=== PATIENT | female | born 1950 | race African-American/Black ===

== ENCOUNTER 2019-07-19 06:24 | Inpatient (IN) ==
[2019-07-18 15:36] LABS: Basophils % 0.2 % (0.0-0.8); Eosinophils % 0.2 % (0.00-10.9); Hematocrit 24.6 VOL% (35.7-47.0); Hemoglobin 7.8 GM/DL (12.0-16.0); Immature Granulocytes Absolute 0.32 #; Lymphocytes # 1.2 10*3/uL (1.4-4.0); Lymphocytes % 7.6 % (21.3-54.2); Mean Corpuscular HGB Conc 31.7 GM/DL (32-36); Mean Corpuscular Volume 94.6 FL (87-102); Mean Platelet Volume 10.1 FL (9.6-12.0); Platelet Count 354 T/CUMM (130-400); Red Cell Distribution Width 13.6 % (9.3-17.3); White Blood Count 15.8 T/CUMM (4-12)
[2019-07-18 15:52] LABS: Albumin 2.4 G/DL (3.4-5.0); Bilirubin,Total 0.4 MG/DL (0.2-1.0); Calcium 9.7 MG/DL (8.5-10.1); Osmolality,Calculated 274.8 MOS/KG (273-304); Total Protein 8.6 G/DL (6.4-8.3)
[2019-07-19] MEDS ORDERED: VANCOMYCIN INJ 500 MG in SODIUM CHLORIDE 0.9% 100 ML IV ONE (06:30)
[2019-07-19] MEDS ORDERED: INSULIN REGULAR 100 UNIT/ML IV ONE (07:38)
[2019-07-19] MEDS ORDERED: BUPIVACAINE MPF 0.25% 30 ML VIAL ONE (07:43)
[2019-07-19] MEDS ORDERED: HEPARIN 5,000 UNIT/1 ML VIAL ONE (07:43)
[2019-07-19] MEDS ORDERED: LIDOCAINE 1% 20 ML VIAL ONE (07:43)
[2019-07-19] MEDS ORDERED: LACTATED RINGERS 1,000 ML IV SCH (08:00)
[2019-07-19] MEDS ORDERED: INSULIN REGULAR 100 UNIT/ML ONE (08:01)
[2019-07-19] MEDS ORDERED: VANCOMYCIN 500 MG VIAL ONE (08:01)
[2019-07-19] MEDS ORDERED: SODIUM CHLORIDE 0.9% 1,000 ML IV PRN (08:51)
[2019-07-19] MEDS ORDERED: ONDANSETRON 4 MG/2 ML VIAL IV PRN (11:52)
[2019-07-19] MEDS ORDERED: HYDROmorphone 2 MG/1 ML VIAL IV PRN (11:52)
[2019-07-19] MEDS ORDERED: lisinopriL 2.5 MG TABLET PO PRN (11:55)
[2019-07-19] MEDS ORDERED: propofoL 200 MG/20 ML VIAL IV ONE (12:10)
[2019-07-19] MEDS ORDERED: HEPARIN 10,000 UNIT/10 ML VIAL ONE (12:10)
[2019-07-19] MEDS ORDERED: LIDOCAINE 2% 5 ML VIAL ONE (12:10)
[2019-07-19] MEDS ORDERED: SEVOFLURANE 1 UNIT/15 MINUTE INH ONE (12:10)
[2019-07-19] MEDS ORDERED: SODIUM CHLORIDE 0.9% 250 ML IV ONE (12:11)
[2019-07-19] MEDS ORDERED: ROCURONIUM 100 MG/10 ML VIAL IV ONE (12:11)
[2019-07-19] MEDS ORDERED: fentaNYL 100 MCG/2 ML VIAL ONE (12:11)
[2019-07-19] MEDS ORDERED: PHENYLEPHRINE 1 MG/10 ML SYRINGE IV ONE (12:11)
[2019-07-19] MEDS ORDERED: MIDAZOLAM 2 MG/2 ML VIAL ONE (12:11)
[2019-07-19] MEDS ORDERED: SUCCINYLCHOLINE 200 MG/10 ML VIAL ONE (12:11)
[2019-07-19 13:38] LABS: Hematocrit 32.8 VOL% (35.7-47.0); Hemoglobin 10.2 GM/DL (12.0-16.0)
[2019-07-19] MEDS: LACTATED RINGERS 1,000 ML IV SCH ×2 (14:00→23:29)
[2019-07-19] MEDS: INSULIN LISPRO 100 UNIT/ML SUBCUT SCH ×2 (16:45→22:09)
[2019-07-19] MEDS: SIMVASTATIN 80 MG TABLET PO SCH (22:07)
[2019-07-19] MEDS: INSULIN GLARGINE 100 UNIT/ML SUBCUT SCH (22:09)
[2019-07-20 06:21] LABS: Calcium 8.9 MG/DL (8.5-10.1)
[2019-07-20] MEDS: DENOSUMAB 60 MG/ML SYRINGE SUBCUT SCH ×2 (08:02→14:23)
[2019-07-20] MEDS: FOLIC ACID 1 MG TABLET PO SCH (08:03)
[2019-07-20] MEDS: FERROUS SULFATE 325 MG TABLET PO SCH (08:03)
[2019-07-20] MEDS: ASPIRIN CHEW 81 MG TABLET PO SCH (08:03)
[2019-07-20] MEDS: LACTATED RINGERS 1,000 ML IV SCH (08:04)
[2019-07-20] MEDS: INSULIN LISPRO 100 UNIT/ML SUBCUT SCH ×2 (08:05→15:30)
[2019-07-20] MEDS: CLOPIDOGREL 75 MG TABLET PO SCH (08:06)
[2019-07-20] MEDS: VANCOMYCIN INJ 1,000 MG in SODIUM CHLORIDE 0.9% 250 ML IV SCH (08:06)
[2019-07-20] MEDS ORDERED: CLOPIDOGREL 75 MG TABLET PO SCH (09:00)
[2019-07-20 09:34] LABS: Hematocrit 29.7 VOL% (35.7-47.0); Hemoglobin 9.4 GM/DL (12.0-16.0)
[2019-07-20] MEDS: INSULIN GLARGINE 100 UNIT/ML SUBCUT SCH (20:55)
[2019-07-20] MEDS: SIMVASTATIN 80 MG TABLET PO SCH (20:55)
[2019-07-21] MEDS: INSULIN LISPRO 100 UNIT/ML SUBCUT SCH ×2 (00:46→09:00)
[2019-07-21 06:19] LABS: Basophils % 0.1 % (0.0-0.8); Eosinophils # 0.1 10*3/uL (0.0-0.87); Eosinophils % 0.7 % (0.00-10.9); Hematocrit 28.1 VOL% (35.7-47.0); Hemoglobin 8.8 GM/DL (12.0-16.0); Immature Granulocytes % 1.2 %; Immature Granulocytes Absolute 0.17 #; Lymphocytes # 1.6 10*3/uL (1.4-4.0); Lymphocytes % 10.8 % (21.3-54.2); Mean Corpuscular HGB Conc 31.3 GM/DL (32-36); Mean Corpuscular Volume 95.3 FL (87-102); Mean Platelet Volume 9.8 FL (9.6-12.0); Monocytes % 9.8 % (1.7-12.7); Neutrophils % 77.4 % (38.7-73.9); Platelet Count 234 T/CUMM (130-400); Red Blood Count 2.95 MC/CUMM (3.8-5.5); White Blood Count 14.3 T/CUMM (4-12)
[2019-07-21] MEDS: VANCOMYCIN INJ 1,000 MG in SODIUM CHLORIDE 0.9% 250 ML IV SCH (08:21)
[2019-07-21] MEDS: ASPIRIN CHEW 81 MG TABLET PO SCH (09:02)
[2019-07-21] MEDS: CLOPIDOGREL 75 MG TABLET PO SCH (09:02)
[2019-07-21] MEDS: FOLIC ACID 1 MG TABLET PO SCH (09:02)
[2019-07-21] MEDS: FERROUS SULFATE 325 MG TABLET PO SCH (09:02)
[2019-07-21 11:54] VITALS: BP 124/67
[2019-07-21] MEDS: DENOSUMAB 60 MG/ML SYRINGE SUBCUT SCH (12:00)
[2019-07-26] MEDS ORDERED: METHOTREXATE 2.5 MG TABLET PO SCH (09:00)
== END 2019-07-21 12:00 | disposition hospice, home (50) | DRG 240 ==
LOC: N.SDSINP 06:24 → N.SDS 06:24 → EDSTATUS 11:15 → N.SDSINP 11:52 → N.3E 13:16
PROVIDERS: ADMIT Surgery; ATTEND Surgery

== ENCOUNTER 2021-07-12 10:11 | Inpatient (IN) ==
[2021-07-12 10:48] LABS: Basophils % 0.6 % (0.0-0.8); Eosinophils # 0.1 10*3/uL (0.0-0.87); Eosinophils % 1.4 % (0.00-10.9); Hematocrit 30.9 VOL% (35.7-47.0); Hemoglobin 9.4 GM/DL (12.0-16.0); Immature Granulocytes % 0.4 %; Immature Granulocytes Absolute 0.03 #; Lymphocytes # 1.4 10*3/uL (1.4-4.0); Lymphocytes % 18.6 % (21.3-54.2); Mean Corpuscular HGB Conc 30.4 GM/DL (32-36); Mean Corpuscular Volume 92.5 FL (87-102); Mean Platelet Volume 10.5 FL (9.6-12.0); Monocytes % 9.6 % (1.7-12.7); Neutrophils % 69.4 % (38.7-73.9); Platelet Count 283 T/CUMM (130-400); Red Blood Count 3.34 MC/CUMM (3.8-5.5); White Blood Count 7.3 T/CUMM (4-12)
[2021-07-12 11:11] LABS: RBC,Urine 39 /HPF (0-4)
[2021-07-12 11:12] LABS: Bilirubin,Urine Negative (Negative); Blood, Urine Large mg/dL (Negative); Glucose,Urine (UA) Negative (Negative); Ketones,Urine Negative (Negative); Nitrite,Urine Negative (Negative); Protein,Urine 1+ mg/dL (Negative); Urine Appearance Cloudy (Clear); Urine Color Yellow (Yellow); Urine Specific Gravity 1.025 (1.001-1.035); Urine Urobilinogen 0.2 eU/dL (<2.0); Urine pH 5.5 (4.5-8.0)
[2021-07-12 11:17] LABS: Alanine Aminotransferase 12 U/L (13-56); Albumin 2.1 G/DL (3.4-5.0); Alkaline Phosphatase 89 U/L (45-117); Aspartate Amino Transferase 26 U/L (0-37); Bilirubin,Total < 0.39 MG/DL (0.20-1.00); Blood Urea Nitrogen 24 MG/DL (7-18); Calcium 9.1 MG/DL (8.5-10.1); Carbon Dioxide 27 MMOL/L (21-32); Estimated Glom Filtration Rate 44 ML/MIN; Glucose 233 MG/DL (74-106); Osmolality,Calculated 285.7 MOS/KG (273-304); Potassium 4.3 MMOL/L (3.5-5.1); Sodium 138 MMOL/L (136-145); Total Protein 8.3 G/DL (6.4-8.2)
[2021-07-12 11:19] LABS: INR 1.1; PT Patient Result 12.3 SECS (10.5-12.0); Partial Thromboplastin Time 27.1 SECS (23.8-32.1)
[2021-07-12] MEDS ORDERED: cefTRIAXone 1,000 MG in SODIUM CHLORIDE 0.9% 100 ML IV STA (13:06)
[2021-07-12] MEDS ORDERED: ONDANSETRON 4 MG/2 ML VIAL IV PRN (14:10)
[2021-07-12] MEDS ORDERED: GLUCAGON 1 MG VIAL IM PRN (14:10)
[2021-07-12] MEDS ORDERED: ACETAMINOPHEN 325 MG TABLET PO PRN (14:10)
[2021-07-12] MEDS ORDERED: SODIUM CHLORIDE 0.45% 1,000 ML IV SCH (14:30)
[2021-07-12] MEDS: cefTRIAXone 1,000 MG in SODIUM CHLORIDE 0.9% 100 ML IV SCH (14:58)
[2021-07-12] MEDS: INSULIN LISPRO 100 UNIT/ML SUBCUT SCH ×2 (18:53→22:38)
[2021-07-12] MEDS ORDERED: INSULIN GLARGINE 100 UNIT/ML SUBCUT SCH (21:00)
[2021-07-12] MEDS: SIMVASTATIN 40 MG TABLET PO SCH (22:35)
[2021-07-12] MEDS: DOCUSATE SODIUM 100 MG CAPSULE PO SCH (22:35)
[2021-07-13] MEDS: DEXTROSE 10% 250 ML BAG IV PRN (05:45)
[2021-07-13 07:38] LABS: Calcium 8.9 MG/DL (8.5-10.1); Osmolality,Calculated 281.1 MOS/KG (273-304); Potassium 2.7 MMOL/L (3.5-5.1)
[2021-07-13] MEDS ORDERED: POTASSIUM CHLORIDE RIDER 10 MEQ/100 ML PREMIX IV PRN (08:01)
[2021-07-13] MEDS ORDERED: POTASSIUM CHLORIDE 20 MEQ TABLET PO PRN (08:01)
[2021-07-13] MEDS: DOCUSATE SODIUM 100 MG CAPSULE PO SCH ×2 (09:48→23:02)
[2021-07-13] MEDS: PANTOPRAZOLE 40 MG TABLET PO SCH (09:48)
[2021-07-13] MEDS: CLOPIDOGREL 75 MG TABLET PO SCH (09:48)
[2021-07-13] MEDS: lisinopriL 2.5 MG TABLET PO SCH (09:48)
[2021-07-13] MEDS: INSULIN LISPRO 100 UNIT/ML SUBCUT SCH ×4 (09:49→22:59)
[2021-07-13] MEDS ORDERED: POTASSIUM CHLORIDE INJ 50 MEQ in SODIUM CHLORIDE 0.9% 500 ML IV SCH (10:00)
[2021-07-13] MEDS: cefTRIAXone 1,000 MG in SODIUM CHLORIDE 0.9% 100 ML IV SCH (15:25)
[2021-07-13] MEDS: SIMVASTATIN 40 MG TABLET PO SCH (23:02)
[2021-07-14] MEDS: DEXTROSE 10% 250 ML BAG IV PRN (07:25)
[2021-07-14] MEDS: DOCUSATE SODIUM 100 MG CAPSULE PO SCH ×2 (09:18→22:31)
[2021-07-14] MEDS: CLOPIDOGREL 75 MG TABLET PO SCH (09:18)
[2021-07-14] MEDS: PANTOPRAZOLE 40 MG TABLET PO SCH (09:18)
[2021-07-14] MEDS: lisinopriL 2.5 MG TABLET PO SCH (09:18)
[2021-07-14] MEDS: INSULIN LISPRO 100 UNIT/ML SUBCUT SCH ×4 (10:51→22:27)
[2021-07-14] MEDS: cefTRIAXone 1,000 MG in SODIUM CHLORIDE 0.9% 100 ML IV SCH (16:07)
[2021-07-14] MEDS: SIMVASTATIN 40 MG TABLET PO SCH (22:31)
[2021-07-15 07:12] LABS: Basophils % 0.6 % (0.0-0.8); Eosinophils # 0.1 10*3/uL (0.0-0.87); Eosinophils % 1.9 % (0.00-10.9); Hematocrit 27.5 VOL% (35.7-47.0); Hemoglobin 8.6 GM/DL (12.0-16.0); Immature Granulocytes % 0.6 %; Immature Granulocytes Absolute 0.04 #; Lymphocytes # 1.7 10*3/uL (1.4-4.0); Lymphocytes % 24.8 % (21.3-54.2); Mean Corpuscular HGB Conc 31.3 GM/DL (32-36); Mean Corpuscular Volume 90.2 FL (87-102); Mean Platelet Volume 10.3 FL (9.6-12.0); Monocytes % 11.3 % (1.7-12.7); Neutrophils % 60.8 % (38.7-73.9); Platelet Count 333 T/CUMM (130-400); Red Blood Count 3.05 MC/CUMM (3.8-5.5); Red Cell Distribution Width 14.8 % (9.3-17.3); White Blood Count 6.8 T/CUMM (4-12)
[2021-07-15 07:34] LABS: Alanine Aminotransferase 11 U/L (13-56); Albumin 1.9 G/DL (3.4-5.0); Alkaline Phosphatase 79 U/L (45-117); Aspartate Amino Transferase 20 U/L (0-37); Bilirubin,Total < 0.39 MG/DL (0.20-1.00); Blood Urea Nitrogen 12 MG/DL (7-18); Calcium 8.5 MG/DL (8.5-10.1); Carbon Dioxide 28 MMOL/L (21-32); Estimated Glom Filtration Rate 67 ML/MIN; Glucose 126 MG/DL (74-106); Potassium 3.6 MMOL/L (3.5-5.1); Sodium 136 MMOL/L (136-145); Total Protein 7.6 G/DL (6.4-8.2)
[2021-07-15 07:43] LABS: Anisocytosis 1+; Hypochromia 1+; Macrocytosis Slight; Platelet Estimate Normal
[2021-07-15] MEDS: DOCUSATE SODIUM 100 MG CAPSULE PO SCH ×2 (08:25→21:18)
[2021-07-15] MEDS: CLOPIDOGREL 75 MG TABLET PO SCH (08:25)
[2021-07-15] MEDS: lisinopriL 2.5 MG TABLET PO SCH (08:25)
[2021-07-15] MEDS: PANTOPRAZOLE 40 MG TABLET PO SCH (08:25)
[2021-07-15] MEDS: INSULIN LISPRO 100 UNIT/ML SUBCUT SCH ×4 (09:54→21:23)
[2021-07-15] MEDS: cefTRIAXone 1,000 MG in SODIUM CHLORIDE 0.9% 100 ML IV SCH (14:24)
[2021-07-15] MEDS: SIMVASTATIN 40 MG TABLET PO SCH (21:18)
[2021-07-16] MEDS: lisinopriL 2.5 MG TABLET PO SCH (08:46)
[2021-07-16] MEDS: DOCUSATE SODIUM 100 MG CAPSULE PO SCH ×2 (08:46→21:21)
[2021-07-16] MEDS: cefTRIAXone 1,000 MG in SODIUM CHLORIDE 0.9% 100 ML IV SCH (08:46)
[2021-07-16] MEDS: CLOPIDOGREL 75 MG TABLET PO SCH (08:47)
[2021-07-16] MEDS: PANTOPRAZOLE 40 MG TABLET PO SCH (08:47)
[2021-07-16 09:10] LABS: Basophils # 0.1 10*3/uL (0.0-0.2); Eosinophils # 0.1 10*3/uL (0.0-0.87); Eosinophils % 1.4 % (0.00-10.9); Hematocrit 24.9 VOL% (35.7-47.0); Hemoglobin 7.9 GM/DL (12.0-16.0); Immature Granulocytes % 0.3 %; Immature Granulocytes Absolute 0.02 #; Lymphocytes # 1.6 10*3/uL (1.4-4.0); Lymphocytes % 22.7 % (21.3-54.2); Mean Corpuscular HGB Conc 31.7 GM/DL (32-36); Mean Corpuscular Volume 90.9 FL (87-102); Mean Platelet Volume 10.3 FL (9.6-12.0); Monocytes % 10.9 % (1.7-12.7); Neutrophils % 63.7 % (38.7-73.9); Platelet Count 313 T/CUMM (130-400); Red Blood Count 2.74 MC/CUMM (3.8-5.5); Red Cell Distribution Width 14.8 % (9.3-17.3); White Blood Count 7.1 T/CUMM (4-12)
[2021-07-16 09:33] LABS: Alanine Aminotransferase < 6 U/L (13-56); Albumin 1.9 G/DL (3.4-5.0); Alkaline Phosphatase 80 U/L (45-117); Aspartate Amino Transferase 17 U/L (0-37); Bilirubin,Total < 0.39 MG/DL (0.20-1.00); Blood Urea Nitrogen 19 MG/DL (7-18); Calcium 8.8 MG/DL (8.5-10.1); Carbon Dioxide 28 MMOL/L (21-32); Estimated Glom Filtration Rate 53 ML/MIN; Glucose 194 MG/DL (74-106); Osmolality,Calculated 276.1 MOS/KG (273-304); Potassium 3.7 MMOL/L (3.5-5.1); Sodium 135 MMOL/L (136-145); Total Protein 7.3 G/DL (6.4-8.2)
[2021-07-16] MEDS: INSULIN LISPRO 100 UNIT/ML SUBCUT SCH ×4 (09:55→21:23)
[2021-07-16 11:13] LABS: % Iron Saturation 27.1 % (18-50)
[2021-07-16] MEDS: SIMVASTATIN 40 MG TABLET PO SCH (21:21)
[2021-07-17 05:32] LABS: Basophils # 0.1 10*3/uL (0.0-0.2); Basophils % 0.6 % (0.0-0.8); Eosinophils # 0.2 10*3/uL (0.0-0.87); Eosinophils % 1.8 % (0.00-10.9); Hematocrit 24.1 VOL% (35.7-47.0); Hemoglobin 7.6 GM/DL (12.0-16.0); Immature Granulocytes % 0.6 %; Immature Granulocytes Absolute 0.05 #; Lymphocytes # 1.4 10*3/uL (1.4-4.0); Lymphocytes % 15.8 % (21.3-54.2); Mean Corpuscular HGB Conc 31.5 GM/DL (32-36); Mean Corpuscular Volume 89.6 FL (87-102); Mean Platelet Volume 10.1 FL (9.6-12.0); Monocytes % 10.6 % (1.7-12.7); Neutrophils % 70.6 % (38.7-73.9); Platelet Count 315 T/CUMM (130-400); Red Blood Count 2.69 MC/CUMM (3.8-5.5); Red Cell Distribution Width 14.7 % (9.3-17.3)
[2021-07-17 05:47] LABS: Calcium 8.2 MG/DL (8.5-10.1); Osmolality,Calculated 280.2 MOS/KG (273-304); Potassium 3.7 MMOL/L (3.5-5.1)
[2021-07-17] MEDS ORDERED: TUBERCULIN SKIN TEST 0.1 ML SYRINGE INTRADERM ONE (07:24)
[2021-07-17] MEDS: INSULIN LISPRO 100 UNIT/ML SUBCUT SCH ×4 (07:30→22:47)
[2021-07-17] MEDS: lisinopriL 2.5 MG TABLET PO SCH (09:27)
[2021-07-17] MEDS: cefTRIAXone 1,000 MG in SODIUM CHLORIDE 0.9% 100 ML IV SCH (09:27)
[2021-07-17] MEDS: PANTOPRAZOLE 40 MG TABLET PO SCH (09:27)
[2021-07-17] MEDS: DOCUSATE SODIUM 100 MG CAPSULE PO SCH ×2 (09:27→22:47)
[2021-07-17] MEDS: CLOPIDOGREL 75 MG TABLET PO SCH (09:27)
[2021-07-17] MEDS: COLLAGENASE OINT 30 GM TUBE TOP SCH (13:30)
[2021-07-17] MEDS: SIMVASTATIN 40 MG TABLET PO SCH (22:46)
[2021-07-18 05:42] LABS: Basophils % 0.5 % (0.0-0.8); Eosinophils # 0.1 10*3/uL (0.0-0.87); Hematocrit 23.5 VOL% (35.7-47.0); Hemoglobin 7.4 GM/DL (12.0-16.0); Immature Granulocytes % 0.3 %; Immature Granulocytes Absolute 0.03 #; Lymphocytes # 1.4 10*3/uL (1.4-4.0); Mean Corpuscular HGB Conc 31.5 GM/DL (32-36); Mean Corpuscular Volume 89.7 FL (87-102); Mean Platelet Volume 10.3 FL (9.6-12.0); Monocytes % 10.5 % (1.7-12.7); Neutrophils % 71.7 % (38.7-73.9); Platelet Count 350 T/CUMM (130-400); Red Blood Count 2.62 MC/CUMM (3.8-5.5); Red Cell Distribution Width 14.6 % (9.3-17.3); White Blood Count 8.7 T/CUMM (4-12)
[2021-07-18 06:04] LABS: Calcium 8.3 MG/DL (8.5-10.1); Osmolality,Calculated 270.1 MOS/KG (273-304); Potassium 3.6 MMOL/L (3.5-5.1)
[2021-07-18] MEDS: INSULIN LISPRO 100 UNIT/ML SUBCUT SCH ×4 (08:13→21:56)
[2021-07-18] MEDS ORDERED: SODIUM CHLORIDE 0.9% 1,000 ML IV PRN (08:55)
[2021-07-18] MEDS ORDERED: FUROSEMIDE 40 MG/4 ML VIAL IV PRN (08:55)
[2021-07-18] MEDS: lisinopriL 2.5 MG TABLET PO SCH (09:00)
[2021-07-18] MEDS: CLOPIDOGREL 75 MG TABLET PO SCH (09:00)
[2021-07-18] MEDS: PANTOPRAZOLE 40 MG TABLET PO SCH (09:00)
[2021-07-18] MEDS: cefTRIAXone 1,000 MG in SODIUM CHLORIDE 0.9% 100 ML IV SCH (09:00)
[2021-07-18] MEDS: DOCUSATE SODIUM 100 MG CAPSULE PO SCH ×2 (09:00→21:58)
[2021-07-18] MEDS: COLLAGENASE OINT 30 GM TUBE TOP SCH (09:14)
[2021-07-18] MEDS: INSULIN GLARGINE 100 UNIT/ML SUBCUT SCH (11:42)
[2021-07-18 20:10] LABS: Hematocrit 24.4 VOL% (35.7-47.0)
[2021-07-18] MEDS: SIMVASTATIN 40 MG TABLET PO SCH (21:58)
[2021-07-19 05:29] LABS: Basophils % 0.5 % (0.0-0.8); Eosinophils # 0.1 10*3/uL (0.0-0.87); Eosinophils % 1.3 % (0.00-10.9); Hemoglobin 11.5 GM/DL (12.0-16.0); Immature Granulocytes % 0.5 %; Immature Granulocytes Absolute 0.04 #; Lymphocytes # 1.5 10*3/uL (1.4-4.0); Lymphocytes % 17.7 % (21.3-54.2); Mean Corpuscular HGB Conc 32.9 GM/DL (32-36); Mean Corpuscular Volume 85.6 FL (87-102); Mean Platelet Volume 9.8 FL (9.6-12.0); Monocytes % 12.7 % (1.7-12.7); Neutrophils % 67.3 % (38.7-73.9); Platelet Count 296 T/CUMM (130-400); Red Blood Count 4.09 MC/CUMM (3.8-5.5); Red Cell Distribution Width 15.6 % (9.3-17.3); White Blood Count 8.5 T/CUMM (4-12)
[2021-07-19 05:41] LABS: Calcium 8.5 MG/DL (8.5-10.1); Osmolality,Calculated 272.4 MOS/KG (273-304)
[2021-07-19 08:26] VITALS: BP 153/56
[2021-07-19] MEDS: cefTRIAXone 1,000 MG in SODIUM CHLORIDE 0.9% 100 ML IV SCH (09:54)
[2021-07-19] MEDS: INSULIN GLARGINE 100 UNIT/ML SUBCUT SCH (09:55)
[2021-07-19] MEDS: CLOPIDOGREL 75 MG TABLET PO SCH (09:56)
[2021-07-19] MEDS: INSULIN LISPRO 100 UNIT/ML SUBCUT SCH (09:56)
[2021-07-19] MEDS: PANTOPRAZOLE 40 MG TABLET PO SCH (09:56)
[2021-07-19] MEDS: lisinopriL 2.5 MG TABLET PO SCH (09:56)
[2021-07-19] MEDS: DOCUSATE SODIUM 100 MG CAPSULE PO SCH (09:57)
== END 2021-07-19 11:00 | DRG 689 ==
LOC: N.5E 10:11 → N.ED 10:11 → N.5E 17:01
PROVIDERS: ADMIT Internal Medicine; ATTEND Internal Medicine